=== PATIENT | female | born 1960 | race Caucasian/White ===

== ENCOUNTER 2021-05-11 08:05 | Day surgery (SDC) | payer BC ==
[~2021-05-11 08:05] MED LIST: Cyanocobalamin (Vitamin B12) 1,000 MCG/ML SDV IM ONE; Glycopyrrolate 0.2 MG/ML 2 ML SDV IVPUSH ONE; Lactated Ringers 1,000 ML IV ONE; MVI, Adult with Vitamin K 10 ML, Thiamine 200 MG, Chromium/Copper/Mang/Selen/Zn 1 ML in... IV ONE; MVI, Adult with Vitamin K 10 ML, Thiamine 200 MG, Zinc/Copper/Manganese/Selenium 1 ML i... IV ONE
[2021-05-11 09:04] LABS: CORONAVIRUS COVID-19 NAA NEGATIVE (NEGATIVE)
[2021-05-11] MEDS ORDERED: fentaNYL 100 MCG/2 ML SDV ONE (10:47)
[2021-05-11] MEDS ORDERED: Propofol 200 MG/20 ML SDV ONE (10:47)
[2021-05-11] MEDS ORDERED: Midazolam 1 MG/ML 2 ML SDV ONE (10:48)
[2021-05-11] MEDS ORDERED: ferumoxytoL 510 MG in Sodium Chloride 0.9% 100 ML IV ONE (12:00)
[2021-05-11] MEDS ORDERED: Sodium Chloride 0.9% 1,000 ML IV SCH (12:00)
[2021-05-11 13:24] VITALS: BP 151/78; PULSE 73
--- NOTE | 2021-05-14 07:39 | OR ---
DATE OF PROCEDURE: 05/11/2021 SURGEON: Gerber Garcia MD PREOPERATIVE DIAGNOSIS: Dysphagia, status post Pina-en-Y gastric bypass. POSTOPERATIVE DIAGNOSES: 1. Dysphagia, status post Pina-en-Y gastric bypass. 2. Very mild stricture at gastrojejunostomy with minimal inflammation within the EG junction and gastric pouch or gastrojejunostomy. OPERATIVE PROCEDURE: Upper GI endoscopy with dilation of gastrojejunostomy ([id number]). ANESTHESIA: IV sedation. INDICATIONS FOR PROCEDURE: This is a 60-year-old female presenting with some dysphagia, status post Pina-en-Y gastric bypass. This was a band removal from a Pina-en-Y gastric bypass case done in 2012. She presents now with increasing dysphagia. She is not presently on any antisecretory medications. Plan is to proceed with upper GI endoscopy with biopsies and/or dilation as indicated. Potential risks of the procedure including bleeding and perforation were discussed, and the patient wishes to proceed. PROCEDURE IN DETAIL: The patient was taken to the operating room and placed in a left lateral decubitus position. IV sedation was administered after which the upper GI endoscope was passed orally through the length of the esophagus into the gastric pouch and through the gastrojejunostomy roughly 20 cm into the Pina limb. Findings were essentially normal. There is, perhaps, some very mild narrowing of the gastrojejunostomy. Otherwise, there were no areas of inflammation or stricturing present, and no bile or other signs of a small bowel obstruction. Bard gastrointestinal balloon catheter was centered across the anastomosis, inflated to 54-[place] size. This was held in position for 1 minute, after which the balloon catheter was deflated and withdrawn. This resulted in minimal if any additional dilation, and the patient was taken to the recovery room in satisfactory condition. At this point, we will give the patient a trial of Levsin 0.125 mg to be taken sublingually p.r.n. for dysphagia. Otherwise, follow up with Judy Hathaway will be in 1 month. The patient has had a fair bit of weight regain and one might consider getting her on a weight loss medication. Otherwise, her iron level has been quite low and she will receive an iron infusion today here and finish off iron infusion sequence at her home clinic. Gerber Garcia MD /[id number]
== END 2021-05-11 13:35 | disposition home or self-care (01) ==
LOC: JP.SDS 08:05
PROVIDERS: ATTEND Surgery
DX: K91.89 Other postprocedural complications and disorders of digestive system (principal); R13.10 Dysphagia, unspecified; I10 Essential (primary) hypertension; Z88.2 Allergy status to sulfonamides; Z88.8 Allergy status to other drugs, medicaments and biological substances; Z01.812 Encounter for preprocedural laboratory examination; Z20.822 Contact with and (suspected) exposure to COVID-19; Z98.84 Bariatric surgery status
CPT/HCPCS: 0241U; 43245; C1726; J2250; J2704; J3010; J3411; J3420; J3490; J7030; J7120; Q0138